=== PATIENT | female | born 1980 | race Two or more races ===

== ENCOUNTER 2017-02-01 08:59 | Outpatient (CLI) | payer OTHER | END 2017-02-01 22:24 | disposition home or self-care (01) | LOC: MLB 08:59 | PROVIDERS: ATTEND Internal Medicine Geriatric Medicine | DX: E55.9 Vitamin D deficiency, unspecified (principal); R73.09 Other abnormal glucose ==

== ENCOUNTER 2017-12-16 08:57 | Outpatient (CLI) | payer OTHER ==
[2017-12-16 09:28] LABS: BASOPHILS # (AUTO) 0.2 K/uL (0.00-0.22); BASOPHILS % (AUTO) 2.4 % (0.0-2.0); EOSINOPHILS # (AUTO) 0.1 K/uL (0-0.4); EOSINOPHILS % (AUTO) 1.9 % (0.0-4.0); HEMATOCRIT 38.2 % (36-48); HEMOGLOBIN 12.6 g/dL (12.0-16.0); LYMPHOCYTES # (AUTO) 1.8 K/uL (2.5-16.5); LYMPHOCYTES % (AUTO) 26.9 % (20.5-51.1); MEAN CORPUSCULAR HEMOGLOBIN 26 pg (27-31); MEAN CORPUSCULAR HGB CONC 33 g/dL (33-37); MEAN CORPUSCULAR VOLUME 80 fL (80-94); MONOCYTES # (AUTO) 0.3 K/uL (0.8-1.0); MONOCYTES % (AUTO) 4.2 % (1.7-9.3); NEUTROPHILS # (AUTO) 4.3 K/uL (1.8-7.7); NEUTROPHILS % (AUTO) 64.6 % (42.2-75.2); PLATELET COUNT (AUTO) 214 K/uL (140-450); RED BLOOD CELL COUNT(AUTO) 4.79 MIL/uL (4.20-5.40); RED CELL DISTRIBUTION WIDTH 12.4 % (11.6-13.7); WHITE BLOOD COUNT (AUTO) 6.7 K/uL (4.8-10.8)
[2017-12-16 10:18] LABS: ANION GAP 13.4 (8-16); CARBON DIOXIDE 28.7 mmol/L (21-32); CREATININE 0.7 mg/dL (0.6-1.3); POTASSIUM 4.1 mmol/L (3.5-5.1)
[2017-12-16 10:26] LABS: ALBUMIN 3.8 g/dL (3.4-5.0); TOTAL BILIRUBIN 0.4 mg/dL (0.0-1.0)
[2017-12-16 10:27] LABS: CHOL/HDL RATIO 3.5 (1-4.5)
[2017-12-17 00:48] LABS: THYROID STIMULATING HORMONE 2.3 uIU/mL (0.34-3.74)
== END 2017-12-16 21:00 | disposition home or self-care (01) ==
LOC: MLB 08:57
PROVIDERS: ATTEND Internal Medicine Geriatric Medicine
DX: M77.32 Calcaneal spur, left foot (principal); M17.11 Unilateral primary osteoarthritis, right knee; E55.9 Vitamin D deficiency, unspecified; E73.0 Congenital lactase deficiency
CPT/HCPCS: 36415; 73562; 73630; 80053; 82306; 83036; 84443; 85025